=== PATIENT | male | born 1950 | race Caucasian/White ===

== ENCOUNTER 2018-04-16 10:54 | Inpatient (IN) | payer OTHER ==
[~2018-04-16] VITALS: Ht 162.6 cm; Wt 67.1 kg
[2018-04-16] MEDS ORDERED: GABAPENTIN800 MG PO (12:41)
[2018-04-16] MEDS ORDERED: ADULT ASPIRIN R81 MG PO (12:41)
[2018-04-23] MEDS ORDERED: AMOX-CLAV 875-1 EACH PO (11:29)
[2018-04-23] MEDS ORDERED: CLONAZEPAM1 MG PO (11:29)
[2018-04-23] MEDS ORDERED: PERCOCET 5-3251 EACH PO (11:29)
[2018-04-23] MEDS ORDERED: COLACE100 MG PO (11:29)
[2018-04-23] MEDS ORDERED: NEURONTIN800 MG PO (11:29)
== END 2018-04-24 12:50 | disposition home or self-care (01) | DRG 460 ==
LOC: O/R 04-23 04:45 → PED 04-23 04:45 → SURH 04-23 11:00 → PED 04-23 21:13
PROVIDERS: Orthopaedic Surgery Orthopaedic Surgery of the Spine
PROC: 0SG30AJ Fusion of Lumbosacral Joint with Interbody Fusion Device, Posterior Approach, Anterior Column, Open Approach (ICD-10-PCS; 2018-04-23)
PROC: 0ST40ZZ Resection of Lumbosacral Disc, Open Approach (ICD-10-PCS; 2018-04-23)
PROC: 07DS3ZZ Extraction of Vertebral Bone Marrow, Percutaneous Approach (ICD-10-PCS; 2018-04-23)
PROC: 00NY0ZZ Release Lumbar Spinal Cord, Open Approach (ICD-10-PCS; principal; 2018-04-23 13:15)
DX: M96.1 Postlaminectomy syndrome, not elsewhere classified (principal); K57.32 Diverticulitis of large intestine without perforation or abscess without bleeding; M47.27 Other spondylosis with radiculopathy, lumbosacral region; M51.17 Intervertebral disc disorders with radiculopathy, lumbosacral region; J44.9 Chronic obstructive pulmonary disease, unspecified

== ENCOUNTER → 2018-11-24 | Outpatient (CLI) | payer OTHER ==
[~2018-11-24] MED LIST: ADULT ASPIRIN R81 MG PO; AMOX-CLAV 875-1 EACH PO; CLONAZEPAM1 MG PO; COLACE100 MG PO; GABAPENTIN800 MG PO; NEURONTIN800 MG PO; PERCOCET 5-3251 EACH PO
== END | disposition home or self-care (01) ==
LOC: RAD 501 13:14
DX: M51.36 Other intervertebral disc degeneration, lumbar region (principal); Z98.1 Arthrodesis status

== ENCOUNTER 2021-06-14 05:30 | Day surgery (SDC) | payer OTHER ==
[~2021-06-14 05:30] MED LIST changes: +ADULT LOW DOSE81 M1 PO; +BACLOF PO; +PANADOL MAXIMU500 MG PO; +PROTONIX40 MG PO; +RELAF PO; +ZOCOR40 MG PO; +ZYRTEC10 M3 PO
== END 2021-06-14 18:00 | disposition home or self-care (01) ==
LOC: CIR.AMB 05:30
PROVIDERS: ATTEND Specialist
DX: K40.90 Unilateral inguinal hernia, without obstruction or gangrene, not specified as recurrent (principal); Z20.822 Contact with and (suspected) exposure to COVID-19

== ENCOUNTER 2022-12-10 04:20 | Day surgery (SDC) | payer OTHER ==
[~2022-12-10] VITALS: Ht 162.6 cm; Wt 74.4 kg
== END 2022-12-10 14:55 | disposition home or self-care (01) ==
LOC: CIR.AMB 04:20
PROVIDERS: ATTEND Specialist
DX: K40.90 Unilateral inguinal hernia, without obstruction or gangrene, not specified as recurrent (principal); Z20.822 Contact with and (suspected) exposure to COVID-19; Z88.8 Allergy status to other drugs, medicaments and biological substances
CPT/HCPCS: 49505; C1781